=== PATIENT | female | born 1990 | race Caucasian/White ===

== ENCOUNTER 2019-12-26 09:35 | Outpatient (CLI) | payer OTHER, SELFPAY ==
[2019-12-26 10:07] LABS: Hematocrit 34.2 % (37.0-47.0); Hemoglobin 11.5 g/dL (12.0-15.0); Mean Corpuscular HGB Conc 33.6 g/dl (32-36); Mean Corpuscular Hemoglobin 31.6 pg (26-34); Mean Platelet Volume 9.9 fl (7.4-10.4); Platelet Count Result 182 k/mm3 (150-375); Red Blood Count 3.64 M/mm3 (4.2-5.4); Red Cell Distribution Width 15.8 % (11.5-14.5); White Blood Count 8.6 K/mm3 (4.5-10.0)
[2019-12-27 09:23] LABS: Rapid Plasma Reagin Non-Reactive (NonReactive)
== END 2019-12-26 09:36 | disposition home or self-care (01) ==
LOC: ANHLAB 09:40
PROVIDERS: PCP Obstetrics & Gynecology; Visit Provider Obstetrics & Gynecology
DX: Z34.93 Encounter for supervision of normal pregnancy, unspecified, third trimester (principal); Z3A.00 Weeks of gestation of pregnancy not specified
CPT/HCPCS: 36415; 85027; 86592; 86850; 86900; 86901

== ENCOUNTER 2019-12-27 07:34 | Inpatient (IN) | payer OTHER, SELFPAY ==
[2019-12-27] VITALS (52 sets, daily range): BP systolic 86–135; BP diastolic 44–81; PULSE 48–85; RESP 16–18; TEMP 36.2–37.1; O2SAT 93–100; BMI 37.0
--- NOTE | 2019-12-27 06:49 | WPDHPUPDATE1 ---
History and Physical Update Update Date/Time: 12/27/19 06:49 History and Physical has been reviewed, including an updated exam of the patient. There are NO changes in the patient's condition. Risks, benefits, and alternatives have been discussed and questions answered. Patient agrees to proceed with procedure.
--- NOTE | 2019-12-27 08:03 | LDADM ---
This patient, Raul Nguyen, was admitted to Labor/Delivery/Recovery 119 on 12/27/19 at 07:34. Plans for labor, pain management and were discussed with patient. Patient/family oriented to hospital policies and general routines including ID bracelet, bed and alarms, visiting hours, pain management, procedures, bathroom and other care routines, personal items, smoking policy, room service/diet and guest tray routines, security routines, and visiting hours. Patient/Family are encouraged to report perceived risks to care and to ask questions if they do not understand what they are told or what they should do. See OBIX for further documentation.
[2019-12-27] MEDS: LACTATED RINGERS 1,000 ML 125 ML IV CONT ×2 (08:30→08:39)
--- NOTE | 2019-12-27 08:39 | WPDANESEPPF ---
Anes - Initial Pre Proc Eval Procedure: Operation Date: 12/27/19 09:00 Proposed Procedures p Repeat Section - Kaushik Hammond MD Date/Time: 12/27/19 08:39 Surgeon: Kaushik Hammond MD Pre Op Diagnosis: section Patient Data Age: 29 Gender: F Height: 5 ft 4 in Weight: 98 kg Last Vital Signs Pulse 79 12/27/19 07:58 BP 133/76 12/27/19 07:58 Allergies Allergy/AdvReac Type Severity Reaction Status Date / Time No Known Allergies Allergy Unverified 09/17/18 17:09 Home Medications Medication Instructions Recorded Confirmed Type wqyolbos-oqx-Si-FA 1 tablet PO DAILY 12/27/19 12/27/19 History [] Patient hx anesthesia problems: none Family hx anesthesia problems: none PMFSH Surgical History Surgical History (Updated 12/27/19 @ 08:39 by Kaushik Barbosa MD) H/O sinus surgery History of section Family History Family History Grandparent Cancer Father Diabetes mellitus Sibling No problems noted. Father No problems noted. Other Bakari's disease Social History Social History Smoking status: Never smoker Second hand tobacco smoke exposure: No Substance use: never Gender identity (if verbalized by the patient): Female Sexual Orientation (if Verbalized by the Patient): Straight or Heterosexual Spiritual care concerns: No Anes - Eval Final PreProcedure Day of Procedure 12/27/19 08:39 Patient weight: obese Heart: regular rate and rhythm Lungs: clear to auscultation Airway: Mallampati scale class II Neurological: alert and oriented Last oral intake: >/= 8 hours ASA classification: II Emergent: no Anesthetic plan: proceed Anesthesia type and monitoring: regional spinal and standard monitoring Informed Consent: The patient's anesthetic plan and its attendant risks and benefits were discussed with the patient/family/POA. Questions were solicited and answers provided to the satisfaction of the patient/family/POA.
[2019-12-27] MEDS: ceFAZolin 2 GM/D5W 50 ML 2 GM/50 ML BAG IVPB (08:58)
--- NOTE | 2019-12-27 09:46 | PM.PROC ---
Procedure Note - Detailed Date of procedure: 12/27/19 Pre-op diagnosis: section Surgeon: Kaushik Hammond MD Postop diagnosis: Term section Procedure: Low-transverse section Findings: Female 9 lb 10 oz with Apgars of 8 and 8 at 1 and 5 minutes respectively Q BL: 500cc Complications: None Anesthesia: Spinal Description of procedure: The patient was prepped draped and placed in the supine position. Under excellent spinal anesthetic the abdomen was entered in a Pfannenstiel incision and progressive layers to the fascia. Fascia was incised in an upward outward fashion bilaterally. Underlying were sharply dissected. Parietal peritoneum elevated Hoa clamps and by sharp dissection carried superiorly and inferiorly to the dome of the bladder. Bladder blade was placed and a bladder flap was formed the bladder blade returned. A low-transverse incision made the head delivered in the LOLITA position. Anterior posterior shoulder delivered spontaneously. Cord clamped x2 and cut and passed off the table an extra o'clock cry. Placenta was delivered manually after getting cord blood. The uterus was inspected for any debris and noted be clear. Uterus was then closed with continuous running 0 Vicryl from lateral edge to lateral edge in locking fashion. Second imbricating locking 0 Vicryl was placed from lateral edge to lateral edge. Hemostasis was assured. The ovaries and tubes appeared within normal limits. The incision appeared intact. The uterus was returned to the abdomen. The uterus was inspected 1 last time and noted be hemostatic. Hematuria was placed over raw wound edge. The laps removed and accounted for. The fascia closed with continuous running 0 Vicryl from lateral edge to midline bilaterally. Irrigation subcutaneous layer. The skin closed with 4 Monocryl and glue. Quantitative blood loss was 500cc. All sponge, needle, instrument counts were correct. There were no immediate complications
[2019-12-27] MEDS: OXYTOCIN 30 UNITS/NS 500 ML 30 UNITS/500 ML BAG 125 UNITS IV CONT (10:22)
[2019-12-27] MEDS: LORATADINE 10 MG TABLET PO (11:07)
--- NOTE | 2019-12-27 12:05 | PC.NURSE ---
Patient transferred to post room #287 via stretcher. Support person present. Oriented to unit, room, information board, rooming in, admission packet and security measures. Patient verbalizes understanding.
--- NOTE | 2019-12-27 13:25 | PC.NURSE ---
Mother called out for assist with feeding . Consulted with patient, mother reports infant was able to latch without issue for first feeding. Mother reports first child had a tongue tie and difficulties and pain with feedings. She reports anxiety with due to the pain with last child. This infant does not apper to be tongue tight/tied. Reviewed tenderness with feeding is common within the first few days of . Nipple care reviewed. Reviewed feeding cues, frequencies, duration of feedings, feeding elimination flow sheet, and signs of adequate intake. Demonstrated stimulation techniques to wake for feeding. Assisted with infant to breast. Reviewed positioning/alignment in cross cradle, holding breast in U hold and guided asymmetrical latch on. Discussed the rational for each. Several attempts before was able to latch correctly. Mother has large nipples. nursed in bursts with eager steady draws and occasional swallowing noted followed with long pausing. Reviewed signs of a correct latch, effective nursing and suck swallow ratio. Infant was able to maintain latch without discomfort to mother. Advised to stimulate infant while feeding to keep awake and effectively feeding for increased intake and to assist with maintaining deep latch. Demonstrated how to adjust latch more deeply while feeding. Instructed mother to call out for RN assistance if she is unable to latch for feeding or she has discomfort with nursing. Instructed feeding should be initiated three hours from start of last feeding or if feeding cues are noted before. Mother voiced understanding of information shared.
[2019-12-27] MEDS: DEXTROSE 5%/0.45% SOD CHL 1,000 ML 125 ML IV CONT (15:27)
[2019-12-27] MEDS: diphenhydrAMINE HCl INJ 50 MG/ML VIAL 25 MG IV PUSH (15:30)
[2019-12-28] MEDS: HYDROcodone/acetaminophen (*CRX) 5-325 MG TABLET 1 TAB PO ×5 (04:58→19:24)
[2019-12-28] MEDS: IBUPROFEN 600 MG TABLET PO ×3 (04:59→19:23)
[2019-12-28 05:00] VITALS: BP 125/72; PULSE 85; RESP 17; TEMP 36.8
[2019-12-28 05:54] LABS: Basophils Percent Auto 0.2 % (0.2-1.2); Eosinophils Absolute Auto 0.1 K/mm3 (0-0.3); Eosinophils Percent Auto 0.7 % (0-4.4); Hematocrit 29.2 % (37.0-47.0); Hemoglobin 9.8 g/dL (12.0-15.0); Immature Granulocyte Absolute 0.06 K/mm3 (0.00-0.031); Immature Granulocyte Percent A 0.6 % (0-0.5); Lymphocytes Absolute Auto 1.06 K/mm3 (0.9-3.2); Lymphocytes Percent Auto 10.3 % (18.3-44.2); Mean Corpuscular HGB Conc 33.6 g/dl (32-36); Mean Corpuscular Hemoglobin 30.7 pg (26-34); Mean Corpuscular Volume 91.5 fl (80-100); Mean Platelet Volume 10.1 fl (7.4-10.4); Monocytes Absolute Auto 0.5 K/mm3 (0.1-0.6); Monocytes Percent Auto 4.6 % (2.6-8.5); Neutrophils Absolute Auto 8.6 K/mm3 (1.3-6.7); Neutrophils Percent Auto 83.6 % (45.5-73.1); Platelet Count Result 155 k/mm3 (150-375); Red Blood Count 3.19 M/mm3 (4.2-5.4); Red Cell Distribution Width 15.6 % (11.5-14.5); White Blood Count 10.3 K/mm3 (4.5-10.0)
[2019-12-28 08:00] VITALS: BP 106/54; PULSE 78; RESP 18; TEMP 36.8; O2SAT 100
--- NOTE | 2019-12-28 08:00 | PM.OBPNVD ---
OB - PN: Subj Subjective Date/time seen: 12/28/19 08:00 Interval history: Patient doing well this AM. she has ambulated out of bed. She is tolerating PO. She reports adequate pain control. Her bleeding is normal and she reports normal lochia. She denies fever, chills, N/V. She has not yet passed flatus. Pt reports a history of anxiety and bipolar depression. pt is feeling anxious since delivery. She was previously on Welbutrin. Patient comments: no complaints and pain well controlled; no flatus present OB - PN: Obj Data Labs CBC & Chem 7: 12/28/19 05:26 Labs: Laboratory Results - last 24 hr 12/28/19 05:26 WBC 10.3 H RBC 3.19 L Hgb 9.8 L Hct 29.2 L MCV 91.5 MCH 30.7 MCHC 33.6 RDW 15.6 H Plt Count 155 MPV 10.1 Immature Gran % (Auto) 0.6 H Neut % (Auto) 83.6 H Lymph % (Auto) 10.3 L Phillips % (Auto) 4.6 Eos % (Auto) 0.7 Baso % (Auto) 0.2 Lymph # (Auto) 1.06 Phillips # (Auto) 0.5 Eos # (Auto) 0.1 Baso # (Auto) 0.0 Abs Immat Gran (auto) 0.06 H Absolute Neuts (auto) 8.6 H Absolute Nucleated RBC 0.0 Nucleated RBC % 0.0 OB - PN A/P Plan day: 1 Plan: routine care Comments: patient doing well this AM santana d/c. advance diet as tolerated H/H .10/25, will start iron supplementation will restart welbutrin 150 mg xl daily, Xanax 0.25 mg PRN continue routine PP care Time Spent With Patient Time: Total time spent is greater than 50% in coordination of care (as documented) at patient's floor/unit and/or counseling patient: Time with patient: less than 15 minutes Review of Systems Constitutional: Constitutional: Reports no additional constitutional complaints Cardiovascular: Cardiovascular: Reports no additional cardiovascular complaints Respiratory: Respiratory: Reports no additional respiratory complaints Gastrointestinal: Gastrointestinal: Reports no additional gastrointestinal complaints Genitourinary: Genitourinary: Reports no additional female genitourinary complaints Exam Const: General: comfortable and no acute distress Resp: Effort & Inspection: normal respiratory effort Auscultation: clear to auscultation bilaterally Cardio: Rate: regular rate GI: GI Palp: Yes Soft to palpation and Yes Tenderness to palpation present (GI) (appropriately tender around incision ) Auscultation: normal bowel sounds Other: fundus firm and below umbilicus Incision C/D/I Urinary Catheter: Urinary Catheter: urine clear Psych: Appearance: grossly normal Mental Status: mental status grossly normal Affect: normal affect
[2019-12-28] MEDS: SIMETHICONE 80 MG TAB.CHEW PO ×3 (08:40→19:23)
[2019-12-28] MEDS: LANOLIN (LANSINOH) 7.5 GM CREAM 1 APPLIC TOPICAL (08:40)
[2019-12-28] MEDS: MULTIVIT/MIN/PREN/FOL AC/IRON TABLET 1 TAB PO (08:41)
[2019-12-28] MEDS: DOCUSATE SODIUM 100 MG CAPSULE PO ×2 (08:41→16:05)
[2019-12-28] MEDS: diphenhydrAMINE HCl CAP 25 MG CAPSULE (08:42)
[2019-12-28] MEDS: ALPRAZolam (*CRX) 0.25 MG TABLET PO (08:43)
--- NOTE | 2019-12-28 09:47 | WPDANLDNPN2 ---
Anes-Prog Note L&D-Neuraxial Date/Time: 12/28/19 09:47 Neuraxial medications: intrathecal PF morphine Opiod-related complaints: none Patient feedback: Patient satisfied with post-operative pain management.
--- NOTE | 2019-12-28 09:47 | WPDANLDPN2 ---
Anes-Prog Note L&D Date/Time: 12/28/19 09:47 Comfortable throughout: section Neuraxial method: spinal Epidural/Spinal procedure site: clean & non-tender Neuro status: Neuro function grossly intact. Cardiovascular status: normal Respiratory status: normal Airway patency: baseline Mental status: baseline Post-Op hydration status: normal Vital Signs: Last Vital Signs Temp 36.8 C 12/28/19 05:00 Pulse 85 12/28/19 05:00 Resp 17 12/28/19 05:00 BP 125/72 12/28/19 05:00 Pulse Ox 100 12/27/19 15:45 Pain score (VAS): 0/0 I/O: Intake & Output 12/27/19 12/28/19 12/28/19 23:59 07:59 15:59 Intake Total 4000 Output Total 5450 Balance -1450 Post-procedural complaints: none Patient feedback: Patient satisfied with anesthetic care.
[2019-12-28] MEDS: POLYSACCHARIDE IRON COMPLEX 150 MG CAPSULE PO (16:05)
[2019-12-28 19:24] VITALS: BP 121/77; PULSE 78; RESP 20; TEMP 36.7; O2SAT 99
--- NOTE | 2019-12-29 02:05 | PC.NURSE ---
Daylight Savings Time For Daylight Savings Time Ending in the Fall - Clocks are moved back. For Daylight Savings Time Beginning in the Spring - Clocks are moved ahead. For [facility], the time of change occurs at 0200 hrs. Time is taken from the maker up folding. This entry on the patient's chart recognizes the change in time reflected during documentation. Example: 2 entries for vital signs may be charted for 0200 hrs.
[2019-12-29] MEDS: HYDROcodone/acetaminophen (*CRX) 5-325 MG TABLET 1 TAB PO ×3 (03:48→12:51)
[2019-12-29] MEDS: SIMETHICONE 80 MG TAB.CHEW PO ×3 (03:48→12:50)
[2019-12-29] MEDS: IBUPROFEN 600 MG TABLET PO ×2 (03:49→12:50)
--- NOTE | 2019-12-29 07:25 | P.DS_ITS ---
DS: Admitting Diagnosis Admitting Diagnosis Admitting Diagnosis: section OB - DS: Summary OB Procedures : None OB Procedures Intrapartum: OB Procedures: : None Peripartum Data Infant Delivery Method: Section Procedures: Procedures Operation Date: 12/27/19 09:00 Actual Procedures Side Surgeon p Repeat Section Not Applicable Kaushik Hammond MD complications: none Status at Discharge Functional status at discharge: independent ambulation Overall status at discharge: patient is progressing back to baseline Time Spent with Patient Time attestation: Total time spent providing and/or coordinating discharge services: Time spent: Less than 30 minutes Exam Const: General: comfortable and no acute distress Resp: Effort & Inspection: normal respiratory effort Auscultation: clear to auscultation bilaterally Cardio: Rate: regular rate GI: Inspection: non-distended GI Palp: Yes Soft to palpation, No Firmness to palpation present (GI), Yes Tenderness to palpation present (GI) (mild tenderness over incision ) and No Guarding due to palpation present (GI) Auscultation: normal bowel sounds Psych: Appearance: grossly normal Mental Status: mental status grossly normal Discharge Plan Discharge Discharging Clinician: Leland Grijalva Patient Disposition: Home, Self-Care Activity: as tolerated and pelvic rest Diet: regular Patient Instructions: (DC) Stand Alone Forms: General Discharge Instructions Follow-up/Referrals: Kaushik Hammond MD [Physician] - Discharge Medications: New hydrocodone-acetaminophen 5-325 mg Tablet 1 tab PO Q3H PRN (Reason: Moderate Pain (4-6)) Qty: 28 RF: 0 alprazolam 0.25 mg Tablet 0.25 mg PO TID PRN (Reason: Anxiety) Qty: 30 RF: 0 polysaccharide iron complex 150 mg iron Capsule 150 mg PO BIDWM Qty: 30 RF: 0 ibuprofen 600 mg Tablet 600 mg PO Q6H PRN (Reason: Cramping) Qty: 30 RF: 0 bupropion HCl 150 mg Tablet Extended Release 24 Hr 150 mg PO QAM Qty: 30 RF: 3 docusate sodium 100 mg Capsule 100 mg PO BID Qty: 14 RF: 0 Pfv-V-Drqplf Cream 1 applic topical PRN PRN (Reason: Sore Nipples) Qty: 1 RF: 0 Continued 1 mg Tablet 1 tablet PO DAILY RF: 0 Date of admission: 12/27/19 07:34 Primary Care Provider: PHYSICIAN,CAD DESIGNER DRAFTER Admitting Provider: Kaushik Hammond Attending physician on admission: Kaushik Hammond Condition: Stable
[2019-12-29 08:00] VITALS: BP 116/77; BP 118/77; PULSE 86; RESP 18; RESP 20; TEMP 36.6; TEMP 37.1; O2SAT 100
[2019-12-29] MEDS: MULTIVIT/MIN/PREN/FOL AC/IRON TABLET 1 TAB PO (08:39)
[2019-12-29] MEDS: POLYSACCHARIDE IRON COMPLEX 150 MG CAPSULE PO (08:39)
[2019-12-29] MEDS: DOCUSATE SODIUM 100 MG CAPSULE PO (08:39)
[2019-12-29] MEDS: buPROPion HCL XL (24 HR) 150 MG TABCR PO (08:40)
--- NOTE | 2019-12-29 09:00 | PC.NURSE ---
Patient was given the opportunity to view the discharge video Mother & Baby Care, The First Two Weeks and to ask questions. Patient declined viewing the video and has been given the mother/baby guide for home reference.
--- NOTE | 2019-12-29 11:16 | PC.NURSE ---
Self care and infant discharge care given to pt. including follow up visit date and time. Pt.verbalized understanding. No questions or concerns voice. Very pleasant and cooperative. No distress noted.
[2019-12-31 09:51] VITALS: BP 132/80; PULSE 82; RESP 20; TEMP 36.9; O2SAT 100
--- NOTE | 2020-01-01 06:44 | PM.IMHP ---
H&P: HPI History of Present Illness Date/Time: 01/01/20 06:44 Chief complaint: section Narrative: Raul Nguyen is a 29 year old female Was admitted for repeat section had been completed. The had been uncomplicated with a large baby is expected Review of Systems Review of Systems: All systems reviewed & are unremarkable except as noted in HPI and below PMFSH Surgical History Surgical History H/O sinus surgery History of section Family History Family History Grandparent Cancer Father Diabetes mellitus Sibling No problems noted. Father No problems noted. Other Bakari's disease Social History Social History Smoking status: Never smoker Second hand tobacco smoke exposure: No Substance use: never Gender identity (if verbalized by the patient): Female Sexual Orientation (if Verbalized by the Patient): Straight or Heterosexual Spiritual care concerns: No Meds Home Medications and Allergies Home Medications Medication Instructions Recorded Confirmed Type viglggez-mdt-Eb-FA 1 tablet PO DAILY 12/27/19 12/27/19 History alprazolam 0.25 mg PO TID PRN #30 tablet 12/29/19 Rx bupropion HCl 150 mg PO QAM #30 tablet 12/29/19 Rx docusate sodium 100 mg PO BID #14 cap 12/29/19 Rx hydrocodone-acetaminophen 1 tab PO Q3H PRN #28 tablet 12/29/19 Rx ibuprofen 600 mg PO Q6H PRN #30 tablet 12/29/19 Rx lanolin [Ibu-T-Bivqlc] 1 applic TOPICAL PRN PRN #1 g 12/29/19 Rx polysaccharide iron complex 150 mg PO BIDWM #30 cap 12/29/19 Rx Allergies Allergy/AdvReac Type Severity Reaction Status Date / Time No Known Allergies Allergy Unverified 09/17/18 17:09 Vital Signs Vital Signs - 24 hr 12/31/19 09:51 Temperature 98.5 F Pulse Rate 82 Respiratory Rate 20 Blood Pressure 132/80 Pulse Oximetry 100 Exam Const: General: no acute distress Eyes: General: appearance normal, both eyes and all related structures Neck: Neck: supple and no JVD Thyroid: thyroid normal Resp: Effort & Inspection: normal respiratory effort Auscultation: clear to auscultation bilaterally Cardio: Rate: regular rate Rhythm: regular rhythm GI: Inspection: non-distended GI Palp: Yes Soft to palpation, No Tenderness to palpation present (GI) and No Guarding due to palpation present (GI) Auscultation: normal bowel sounds : General: Yes bladder normal to palpation External Female Exam: normal external appearance Speculum Exam - Vagina: normal vaginal discharge and No vaginal bleeding Speculum Exam - Cervix: nontender Bimanual exam- vagina & uterus: bladder normal to palpation and No Cervical tenderness present OB/external & speculum: No vaginal bleeding Skin: General skin exam: no rashes or lesions noted Extrem: General: normal to inspection and no edema Psych: Mental Status: mental status grossly normal Affect: normal affect Assessment and Plan Additional Plan impression: Term for section Plan: Low-transverse section
== END 2019-12-29 14:05 | disposition home or self-care (01) | DRG 788 ==
LOC: ANHOB2 12-29 07:26 → ANHLDR 01-01 08:14 → ANHOB2 01-01 08:14
PROVIDERS: Admitting Provider Obstetrics & Gynecology; Visit Provider Student in an Organized Health Care Education/Training Program
PROC: 10D00Z1 Extraction of Products of Conception, Low, Open Approach (ICD-10-PCS; CPT 59514; principal; 2019-12-27 09:00)
DX: O34.211 Maternal care for low transverse scar from previous cesarean delivery (principal); Z37.0 Single live birth; Z3A.39 39 weeks gestation of pregnancy; O99.214 Obesity complicating childbirth; E66.9 Obesity, unspecified; O99.344 Other mental disorders complicating childbirth; F41.8 Other specified anxiety disorders; F31.9 Bipolar disorder, unspecified
CPT/HCPCS: 36415; 85025; A9270; J0131; J0690; J1200; J2274; J2370; J2405; J2590; J7120

== ENCOUNTER 2020-01-03 14:08 | Outpatient (RCR) | payer OTHER, SELFPAY ==
--- NOTE | 2020-02-04 14:13 | PC.NURSE ---
Later entry Pt seen on 01-03-2020 [id number] OUT [id number] HISTORY: Pt. delivered at [facility] at 38 weeks. had no complications after delivery. Mother had no complications after delivery. Infant is now 7 days old. appears to be well cared for. has been seen by ICP as scheduled. last seen by ICP on 01/02/2020. Mother reports: Difficulties with latch and maintaining latch. Mother attempts infant for most feedings, is sleepy and will nurse on and off for a few minutes, she is fussy and on and off the breast. Mother is pumping 15 minutes after each feeding and will supplement 3oz oz of EBM/formula after. Mother pumps 4-6 oz per session. Mother wishes: Effectively breastfeed with less supplementation and pumping. Currently at 6-8 wets per day and 4-6 yellow seedy stools per day. weight: 9#10 Discharge weight: 8#15 Last Weight: 9#7 Pre feeding weight: 4284 Post feeding weight: 4298 OBSERVATION: Mother's milk is in leaking, no hawthorne noted to wither nipple/areola. Both nipples are low profile, and do not roll out. Infant does not appear to have any tongue, lip ties or recessed chin. Observed mother attempting to breast, using cross cradle and guided latch. Infant makes eager attempts and will latch after several attempts. Infant is able to latch, shallow to breast, with some discomfort to mother, she will quickly release latch and is eager to attempt again. Mother sates she will attempt this a few times before bottle feeding. Offered and explained the nipple shield, mother is willing to attempt shield use. Nipple shield provided to mother due to ineffective latch. Instructions given on application and cleaning of shield. Discussed nipple shield precautions and possible complications. Patient able to return demonstration on proper application of shield. Discussed the need for regular pumping until can empty breast and gain appropriately. Patient verbalizes understanding. With shield in place, was able to latch deeply. was not vigorously with nipple shield, suggested mother use breast compression to assist with milk flow. was nursing with bursts of long draws and freq swallowing, she would then stop and thrash around, once mother was able to keep milk flow infant would nurse. Reviewed is accustom to a heavy flow from bottle and may take several days for her to continuously nurse and illicit let down for flow. Suggested mother use pace feeding for bottle to assist with transition. Mother feels she will continue to put infant to breast using shield and supplement until infant is continuously nursing and satisfied when done. Discussed weaning from shield, suggested to allow to transition to breast effectively before weaning. Reviewed signs infant may be ready to decrease supplementation. PLAN: Mother will follow above feeding plan using techniques for deeper latch with shield, supplementing after. Weaning once is effectively nursing and satisfied at breast. Mother will call with further questions or concerns.
== END 2020-02-07 09:06 | disposition home or self-care (01) ==
LOC: ANHOBOP 14:08
PROVIDERS: Visit Provider Pediatrics
DX: Z39.1 Encounter for care and examination of lactating mother (principal)
CPT/HCPCS: 99199

== ENCOUNTER → 2021-03-08 10:34 | Outpatient (CLI) | payer OTHER, SELFPAY ==
[2021-03-08 14:42] LABS: Influenza Control Positive
[2021-03-08 20:23] LABS: SARS-CoV-2 RNA PCR Positive
== END ==
PROVIDERS: PCP Family Medicine; Visit Provider Family Medicine
DX: R05.9 Cough, unspecified (principal); R50.9 Fever, unspecified; U07.1 COVID-19
CPT/HCPCS: 87804; C9803; U0003; U0005

== ENCOUNTER → 2021-07-16 01:31 | Outpatient (CLI) | payer OTHER, SELFPAY ==
[2021-07-16 16:55] LABS: SARS-CoV-2 RNA PCR Negative
== END ==
PROVIDERS: PCP Family Medicine; Visit Provider Family Medicine
DX: R05.9 Cough, unspecified (principal); J02.9 Acute pharyngitis, unspecified; Z20.822 Contact with and (suspected) exposure to COVID-19
CPT/HCPCS: C9803; U0003; U0005

== ENCOUNTER 2022-12-29 11:38 | Outpatient (CLI) | payer OTHER, SELFPAY ==
--- NOTE | ~2022-12-29 | XR_ITS ---
XR chest 2V DATE: 12/29/2022 11:59 INDICATION: Cough TECHNIQUE: 2 views COMPARISON: None FINDINGS: Normal heart size. No hilar or mediastinal enlargement. No pulmonary infiltrate or consolid ation, pleural effusion or pulmonary vascular congestion or pneumothorax is detected. Included skelet al structures appear unremarkable. IMPRESSION: Negative Reviewed, dictated and finalized at location L. IMPRESSION: Negative
== END 2022-12-29 11:39 ==
LOC: MICIMG 11:41
PROVIDERS: PCP Physician Assistant; Visit Provider Physician Assistant
DX: R05.9 Cough, unspecified (principal); J45.909 Unspecified asthma, uncomplicated
CPT/HCPCS: 71046

== ENCOUNTER 2023-08-12 17:13 | Emergency (ER) | payer OTHER, SELFPAY ==
--- NOTE | ~2023-08-12 | XR_ITS ---
XR foot LT min 3V Ordering provider: Carrillo Bolton MD History: . twisted ankle in hole today,swelling lat ankle top of foot . Comparison: None. FINDINGS: BONES: Small chip of bone is projected over the distal calcaneus in the oblique view which may repres ent a fracture. No other definite fractures seen. Sclerotic lesion is seen in the mid-distal phalanx of the second toe. Follow-up advised. JOINT SPACES: Normal. No tarsal coalition. SOFT TISSUES: Normal. IMPRESSION: Chip of bone seen near to the tip of the calcaneus anteriorly which may represent a fracture. Follow- up advised. Sclerotic lesion in the middle phalanx of the second toe. Follow-up advised. Reviewed, dictated and finalized at location A. IMPRESSION: Chip of bone seen near to the tip of the calcaneus anteriorly which may represe nt a fracture. Follow-up advised. Sclerotic lesion in the middle phalanx of the second toe. Follow-up advised.
--- NOTE | ~2023-08-12 | XR_ITS ---
XR ankle LT min 3V Ordering provider: Carrillo Bolton MD History: . twisted ankle in hole today,swelling lat ankle top of foot . Comparison: None. FINDINGS: BONES: Small chip of bone is seen near to the tip of the lateral malleolus suggestive of a fracture. JOINT SPACES: The ankle mortise is normal. SOFT TISSUES: Mild soft tissue swelling over the lateral malleolus. IMPRESSION: Chip fracture in the lateral malleolus tip. Reviewed, dictated and finalized at location A.
[2023-08-12 17:24] VITALS: BP 117/83; PULSE 80; RESP 16; TEMP 36.8; O2SAT 100
--- NOTE | 2023-08-12 19:19 | ED.LOWEXIN ---
HPI - Extremity Injury (Lower) General Chief Complaint: Extremity Injury, Lower Stated Complaint: left ankle injury Time Seen by Provider: 08/12/23 17:47 Source: patient Mode of arrival: ambulatory Limitations: no limitations History of Present Illness HPI Narrative: This is a 33-year-old female that presents to the emergency department after a left ankle injury sustained just prior to arrival. Reports she accidentally stepped in a hole and twisted her ankle. Reports swelling and pain in the area. Denies decreased range of motion or numbness Related Data Home Medications Medication Instructions Recorded Confirmed dextroamphetamine-amphetamine 15 15 mg PO BID 01/04/21 12/29/22 mg tablet (Adderall) Allergies Allergy/AdvReac Type Severity Reaction Status Date / Time No Known Allergies Allergy Verified 08/12/23 17:27 Review of Systems Review of Systems: CONSTITUTIONAL: Denies fever MUSCULOSKELETAL: Reports joint pain, and myalgia. NEUROLOGIC: Denies numbness All systems reviewed & are unremarkable except as noted in HPI and below PMFSH Past Medical History Medical History ADHD Asthma Bipolar disorder Surgical History Surgical History H/O sinus surgery History of section Family History Family History Grandparent Cancer Father Diabetes mellitus Sibling No problems noted. Father No problems noted. Other Bakari's disease Social History Social History Smoking status: Never smoker Second hand tobacco smoke exposure: No Alcohol intake: never Substance use: never Living arrangements: with family Occupation/Education: occupation Gender identity (if verbalized by the patient): Female Sexual Orientation (if Verbalized by the Patient): Straight or Heterosexual Spiritual care concerns: No Exam Narrative: GENERAL: Well-appearing, well-nourished, and in no acute distress. HEAD: Normocephalic, atraumatic. EYES: EOMI. EXTREMITIES: Normal range of motion. Mild edema about the left lateral malleoli. Normal DP pulse. Normal sensation SKIN: Warm, dry, no rash. NEURO: No focal deficits. Alert and oriented x3. PSYCH: Normal mood and affect Course Course Emergency Course: patient updated on her workup and agrees with plan of care Vital Signs Vital signs: Vital Signs Temperature 98.3 F 08/12/23 17:24 Pulse Rate 80 08/12/23 17:24 Respiratory Rate 16 08/12/23 17:24 Blood Pressure 117/83 08/12/23 17:24 Pulse Oximetry 100 08/12/23 17:24 Oxygen Delivery Room Air 08/12/23 17:24 Temperature 98.3 F 08/12/23 17:24 Pulse Rate 80 08/12/23 17:24 Respiratory Rate 16 08/12/23 17:24 Blood Pressure 117/83 08/12/23 17:24 Pulse Oximetry 100 08/12/23 17:24 Oxygen Delivery Room Air 08/12/23 17:24 Procedures Orthopedic Splinting/Casting Injury #1: Splinting/Casting Date: 08/12/23 Splinting/Casting Time: 19:36 Side: left Lower Extremity Injury Location: ankle Lower Extremity Immobilizer: posterior splint Splint: customized in ED OCL: short leg Pre-Procedure Neuro Vascular Exam: normal Post-Procedure Neuro Vascular Exam: normal Other Orthopedic Equipment: crutches MDM - Extremity Injury (Lower) MDM Narrative Medical decision making narrative: patient presents to the emergency department for left ankle pain after an injury just prior to arrival. She is neurovascularly intact. Left ankle x-ray shows a chip fracture of the lateral malleolus. Patient placed in short leg posterior and given crutches. Will be given follow-up with Orthopedics. Sclerotic lesion of the 2nd toe incidentally found. Patient was made aware of this and in
[2023-08-12] MEDS: HYDROcodone/acetaminophen (*CRX) 5-325 MG TABLET 1 TAB PO (19:23)
[2023-08-12 19:42] VITALS: BP 122/74; PULSE 69; RESP 15; O2SAT 100
== END 2023-08-12 19:43 | disposition home or self-care (01) ==
PROVIDERS: Emergency Provider Physician Assistant; PCP Family Medicine
DX: S82.62XA Displaced fracture of lateral malleolus of left fibula, initial encounter for closed fracture (principal); J45.909 Unspecified asthma, uncomplicated; F90.9 Attention-deficit hyperactivity disorder, unspecified type; F31.9 Bipolar disorder, unspecified; M89.9 Disorder of bone, unspecified; Z79.899 Other long term (current) drug therapy; X50.9XXA Other and unspecified overexertion or strenuous movements or postures, initial encounter
CPT/HCPCS: 29515; 73610; 73630; 99284; A9270

== ENCOUNTER 2023-08-18 11:41 | Outpatient (CLI) | payer OTHER, SELFPAY ==
--- NOTE | ~2023-08-18 | CT_ITS ---
EXAMINATION: CT foot LT wo/w con DATE: 08/18/2023 12:06 INDICATION: Closed fracture of fibula. Sclerotic lesion of second middle phalanx. TECHNIQUE: Computed tomography (CT) of the left foot was performed without intravenous contrast. Auto mated exposure control and iterative reconstruction technique were employed. The dose-length product was 329.35 mGy-cm. COMPARISON: Left foot and ankle radiographs 08/12/2023 FINDINGS: Bone alignment is normal. There is a chip fracture of dorsal lateral aspect of head of talu s. There is a comminuted fracture of dorsal lateral aspect of anterior process of calcaneus. There is a comminuted fracture of medial aspect of cuboid. There is a benign bone island in second middle pha lanx. Joint spaces are normal. There is soft tissue swelling of the foot and ankle. IMPRESSION: 1. Fractures of anterior process of calcaneus, head of talus, and cuboid. 2. Benign bone island in second middle phalanx. Reviewed, dictated and finalized at location E.
== END 2023-08-18 11:42 ==
LOC: MICIMG 11:43
PROVIDERS: PCP Family Medicine; Visit Provider Orthopaedic Surgery
DX: S82.832D Other fracture of upper and lower end of left fibula, subsequent encounter for closed fracture with routine healing (principal); X58.XXXD Exposure to other specified factors, subsequent encounter
CPT/HCPCS: 73702; Q9967

== ENCOUNTER 2024-09-24 16:38 | Outpatient (CLI) | payer OTHER, SELFPAY ==
--- OUTSIDE RECORDS SUMMARY | 2024-09-24 16:41 | XMS_ITS | Clinical Summary ---
Author Organization [facility] ospital Address [address] [place] [address] Care Team Providers Care Blind Escort Name Role Phone Adolfo Barnes MD Primary Care Provider Saran Jeff MD Unavailable [phone] Allergies No known active allergies Medications No known medications Active Problems Problem Noted Date Diagnosed Date Rash 03/11/2022 Assessment & Plan (03/11/2022 3:09 PM NIGHT CLEANER): 32yoDebbi presents for evaluation due to facial rash, hand pain, and diffuse pruritus. The joint pain that she describes does not sound particularly inflammatory. Her facial rash is photosensitive, though does not clearly spare the nasolabial fold by exam. She has no synovitis or ttp. Our workup shows a negative AVISE (neg PATRIC and all other more specific autoantibodies) with normal CBC, CMP, CRP, and ESR. Her hand ultrasound look good without evidence to suggest inflammatory arthritis. Overall there is not evidence at this time to suggest any active rheumatologic diagnosis. Recommend continued follow up with derm. Polyarthralgia 02/17/2022 Overview (03/01/2022): US right hand/wrist (03/01/22):Grade 1 power doppler in the radial/scaphoid joint. Marked synovial thickening in the wrist. No significant joint effusions or erosive changes seen on US examination. Assessment & Plan (02/17/2022 11:49 AM NIGHT CLEANER): 32yoF presents for evaluation due to facial rash, hand pain, and diffuse pruritus. The joint pain that she describes does not sound particularly inflammatory. Her facial rash is photosensitive, though does not clearly spare the nasolabial fold by exam today. She has no synovitis or ttp. Overall have a lower suspicion for an active rheumatologic diagnosis. To evaluate will check labs and a hand ultrasound as below with plan for follow up in ~2 weeks to review results. Social History Tobacco Use Types Packs/Day Years Used Date Smoking Tobacco: Never Assessed Comments Unknown Sex and Gender Information Value Date Recorded Sex Assigned at Not on file Legal Sex Female 1:38 PM NIGHT CLEANER Gender Identity Not on file Sexual Orientation Not on file Obstetrics History Last Filed Vital Signs Vital Sign Reading Time Taken Comments Blood Pressure 120/82 03/11/2022 3:21 PM NIGHT CLEANER Pulse 106 03/11/2022 3:21 PM NIGHT CLEANER Temperature - - Respiratory Rate - - Oxygen Saturation 98% 03/11/2022 3:21 PM NIGHT CLEANER Inhaled Oxygen Concentration - - Weight 82.6 kg (182 lb) 03/11/2022 3:21 PM NIGHT CLEANER Height 162.6 cm (5' 4) 03/11/2022 3:21 PM NIGHT CLEANER Body Mass Index 31.24 03/11/2022 3:21 PM NIGHT CLEANER Plan of Treatment Health Maintenance Due Date Last Done Comments Cervical Cancer Screening 1988 Depression Screening 1988 Hepatitis C Screening 1988 Varicella Vaccines (1 of 2 - 13+ 2-dose series) 01/21/2001 Hepatitis B Screening 01/21/2006 Regular Well Visit/Exam 18-64 01/21/2006 HPV Vaccines (1 - 3-dose SCDM series) 01/21/2015 Covid-19 Vaccine (2 - season) 2023 07/18/2020 Influenza Vaccine (#1) 2024 0, 12/03/2019, 12/14/2018, Additional history exists DTaP/Tdap/Td Vaccine (4 - Td or Tdap) 10/30/2029 10/31/2019, 08/28/2019, 09/18/2017 Pneumococcal vaccine <65 Aged Out No longer eligible based on patient's age to complete this topic Insurance R [facility] Care Teams Blind Escort Relationship Specialty Start Date End Date Adolfo Barnes MD [address] [place] [address] PCP - General Family Medicine 01/13/22 Saran Jeff MD [address] [place] [address] Consulting Physician Rheumatology 01/13/22
--- OUTSIDE RECORDS SUMMARY | 2024-09-24 16:41 | XMS_ITS | Referral Summary ---
Author Organization [facility] ospital Address [address] [place] [address] Care Team Providers Care Surgical Clinical Reviewer Name Role Phone Adolfo Barnes MD Primary Care Provider Saran Jeff MD Unavailable [phone] Allergies No known active allergies Medications No known medications Active Problems Problem Noted Date Diagnosed Date Rash 03/11/2022 Assessment & Plan (03/11/2022 3:09 PM SUPERINTENDENT DIVISION): 32yoDebbi presents for evaluation due to facial [...] examination. Assessment & Plan (02/17/2022 11:49 AM SUPERINTENDENT DIVISION): 32yoF presents for evaluation due to facial [...] on file Legal Sex Female 1:38 PM SUPERINTENDENT DIVISION Gender Identity Not on file Sexual Orientation Not on file Last Filed Vital Signs Vital Sign Reading Time Taken Comments Blood Pressure 120/82 03/11/2022 3:21 PM SUPERINTENDENT DIVISION Pulse 106 03/11/2022 3:21 PM SUPERINTENDENT DIVISION Temperature - - Respiratory Rate - - Oxygen Saturation 98% 03/11/2022 3:21 PM SUPERINTENDENT DIVISION Inhaled Oxygen Concentration - - Weight 82.6 kg (182 lb) 03/11/2022 3:21 PM SUPERINTENDENT DIVISION Height 162.6 cm (5' 4) 03/11/2022 3:21 PM SUPERINTENDENT DIVISION Body Mass Index 31.24 03/11/2022 3:21 PM SUPERINTENDENT DIVISION Plan of Treatment Not on file Insurance [facility] Care Teams Surgical Clinical Reviewer Relationship Specialty Start Date End Date Adolfo Barnes MD [address] [place] [address] PCP - General Family Medicine 01/13/22 Saran Jeff MD [facility] [place] [address] Consulting Physician Rheumatology 01/13/22
--- OUTSIDE RECORDS SUMMARY | 2024-09-24 16:41 | XMS_ITS | Clinical Summary ---
Author Organization [facility] Address [address] [place] [address] Care Team Providers Care Installation Supervisor Name Role Phone Gulshan Kiser DO Primary Care Provider + Allergies No known active allergies Medications albuterol sulfate HFA 108 (90 Base) MCG/ACT inhaler INHALE 2 PUFFS Q 6 H PRN 07/02/2019 Active ALPRAZolam 0.25 MG tablet Take 0.25 mg by mouth 3 (three) times daily as needed. 12/29/2019 Active Azelaic Acid 15 % gel OLIVIA TO FACE D 12/23/2019 Active buPROPion XL 150 MG 24 hr tablet Take 150 mg by mouth every morning. 12/29/2019 Active buPROPion XL 300 MG 24 hr tablet Take 300 mg by mouth daily. 04/01/2019 Active busPIRone 10 MG tablet Take 10 mg by mouth 2 (two) times daily. 08/13/2019 Active lamoTRIgine 100 MG tablet Take 100 mg by mouth nightly at bedtime. 01/28/2019 Active lamoTRIgine 200 MG tablet Take 200 mg by mouth nightly at bedtime. 03/31/2019 Active Norgestimate-Et hinyl Estradiol (ORTHO TRI-CYCLEN, 28,) 0.18/0.215/0.25 MG-35 MCG tablet Take 1 tablet by mouth daily. 11/22/2011 Active POLY-IRON 150 150 MG capsule Take by mouth 2 (two) times daily. 12/29/2019 Active Prenat w/o O-ZO-Tlhwyfo-FA -DHA (PNV-DHA) 27-0.6-0.4-300 MG Cap Take 1 capsule by mouth daily. 11/05/2019 Active Active Problems No known active problems Immunizations Immunization Administration Dates Next Due Flucelvax 6 Months+ (Prefilled Syringe) 12/03/19 20,12/14/2018 Influenza (Generic) 12/28/2017 Tdap (Generic) 08/28/2019 Family History Medical History Relation Comments No Known Problems Father Cancer Maternal Grandfather Cancer Maternal Grandmother Cancer Maternal Uncle Depression Mother Thyroid Sister Relation Status Comments Father Alive Maternal Grandfather Maternal Grandmother Maternal Uncle Alive Mother Alive Sister Social History Tobacco Use Types Packs/Day Years Used Date Smoking Tobacco: Never Smokeless Tobacco: Never Alcohol Use Standard Drinks/Week Comments Never 0 (1 standard drink = 0.6 oz pur e alcohol) AUDIT-C Answer Date Recorded Q1: How often do you have a drink containing alc ohol? Never 01/13/2020 Average Number of Drinks Not on file 020 Frequency of Binge Drinking Not on file 12/28 PHQ-2 Answer Date Recorded PHQ-2 Score - If the patient scores above 3, please move on to questions 3-9 4 01/13/2020 Comments No Sex and Gender Information Value Date Recorded Sex Assigned at Not on file Legal Sex Female 9:08 PM CDT Gender Identity Not on file Sexual Orientation Not on file Occupation Industry Job Start Date Job End Date STAY AT HOME MOM Not on file Not on file Not on file Last Filed Vital Signs Vital Sign Reading Time Taken Comments Blood Pressure 102/68 01/13/2020 8:06 AM PLANT TAXONOMIST Pulse 73 01/13/2020 8:06 AM PLANT TAXONOMIST Temperature 36.6 C (97.8 F) 01/13/2020 8:06 AM PLANT TAXONOMIST Respiratory Rate 16 01/13/2020 8:06 AM PLANT TAXONOMIST Oxygen Saturation 98% 01/13/2020 8:06 AM PLANT TAXONOMIST Inhaled Oxygen Concentration - - Weight 91 kg (200 lb 9.6 oz) 01/13/2020 8:06 AM PLANT TAXONOMIST Height 162.6 cm (5' 4) 01/13/2020 8:06 AM PLANT TAXONOMIST Body Mass Index 34.43 01/13/2020 8:06 AM PLANT TAXONOMIST Plan of Treatment Health Maintenance Due Date Last Done Comments Cervical Cancer Screening Pa p Smear (Age 30 to 64) Every 3 Years 1988 Hepatitis C 01/21/2006 Hepatitis B Vaccines (1 of 3 - 19+ 3-dose series) 01/21/2007 HPV Vaccines (1 - 3-dose SCD M series) 01/21/2015 Cervical Cancer Screening Pa p with HPV Testing (Age 30 to 64) Every 5 Years 01/21/2018 Cervical Cancer Screening with HPV 01/21/2018 Annual Physical 01/12/2021 01/13/2020 COVID-19 Vaccine (1 - 2023-2 5 season) 2023 DTaP, Tdap and Td Vaccines ( 2 - Td or Tdap) 08/27/2029 08/28/2019 Meningococcal B Vaccine Aged Out No l onger eligible based on patient's age to complete this topic Meningococcal Vaccine Aged Out No jung aundrea eligible based on patient's age to complete this topic Pneumococcal Vaccine: Pediat rics (0 to 5 Years) and At-Risk Patients (6 to 49 Years) Aged Out No longer eligi ble based on patient's age to complete this topic RSV Immunizations Under 20 Months Aged Out No longer eligible based on patient's age to complete this topic Insurance Care Teams Installation Supervisor Relationship Specialty Start Date End Date Gulshan Kiser DO [address] [place] [id number] PCP - General FAMILY PRACTICE 01/13/20
--- OUTSIDE RECORDS SUMMARY | 2024-09-24 16:41 | XMS_ITS | Clinical Summary ---
Author Organization [facility] Care Team Providers Care Press Puller Name Role Phone Unavailable Primary Care Provider Unavailabl e Social History Tobacco Use Types Packs/Day Years Used Date Smoking Tobacco: Never Assessed Comments Unknown Sex and Gender Information Value Date Recorded Sex Assigned at Not on file Legal Sex Female 10:52 AM CDT Gender Identity Not on file Sexual Orientation Not on file Plan of Treatment Health Maintenance Due Date Last Done Comments Hepatitis C Virus (HCV) Screening 1990 Human Papillomavirus (HPV) Immunization (1 - 3-dose series) 01/21/2003 Hepatitis B Immunization (1 of 3 - 19+ 3-dose series) 01/21/2007 Pap Smear 01/21/2009 Cervical Cancer Screening (CCS) 01/21/2018 HPV/Cotest 01/21/2018 SARS-COV-2 Immunization ( season) 2023 07/18/2020 Influenza Immunization (#1) 2024 10/0 07/2019, 12/14/2018, 12/28/2017 Respiratory Syncytial Virus (RSV) Immunization (Adult) (1 - 1-dose 75+ series) 01/21/2063 DTaP/Tdap/Td Immunization Discontinued 2019, 08/28/2019, 09/18/2017 TdaP Immunization Completed 10/31/2019, 08/28/2019, 09/18/2017 Meningococcal Immunization (ACWY) Aged Out No longer eligible based on patient's age to complete this topic Pneumococcal Immunization Combined Aged Out No longer eligible based on patient's age to complete this topic Rotavirus Immunization Aged Out No lo nger eligible based on patient's age to complete this topic
[2024-09-24 17:22] LABS: Hematocrit 38.7 % (37.0-47.0); Hemoglobin 13.1 g/dL (12.0-15.0); Immature Granulocyte Percent A 0.2 % (0-0.5); Lymphocytes Absolute Auto 2.43 K/mm3 (0.9-3.2); Mean Corpuscular HGB Conc 33.9 g/dl (32-36); Mean Corpuscular Hemoglobin 31.0 pg (26-34); Mean Corpuscular Volume 91.5 fl (80-100); Nucleated Red Blood Cells Absolute Auto 0.000 K/mm3 (0.0-0.012); Nucleated Red Blood Cells Perc 0.0 % (0.0-0.2); Platelet Count Result 251 k/mm3 (150-375); Red Blood Count 4.23 M/mm3 (4.2-5.4); White Blood Count 8.3 K/mm3 (4.5-10.0)
== END 2024-09-24 16:39 | disposition home or self-care (01) ==
LOC: ANHLAB 16:40
PROVIDERS: PCP Family Medicine; Visit Provider Obstetrics & Gynecology
DX: R10.2 Pelvic and perineal pain (principal); Z01.818 Encounter for other preprocedural examination
CPT/HCPCS: 36415; 85025; 86850; 86900; 86901

== ENCOUNTER 2024-09-27 02:20 | Day surgery (SDC) | payer OTHER, SELFPAY ==
[2024-09-20 08:16] VITALS: BMI 34.4
--- NOTE | 2024-09-20 08:27 | PC.NURSE ---
Report to the Outpatient Waiting Room, entrance under the green pavilion located off [facility], at time _0900_ on date _[id number]_. Planned Procedure Time: _1100_.? Time changes happen often and if your time is changed the preop area will call you the afternoon before. - You and your visitor will be asked to self-screen and do not enter if you have any COVID symptoms. Please call surgeon if you need to reschedule. - A mask is optional within the hospital at this time. Patients may have clear liquids (water, carbonated beverages, clear teas, apple juice) until 3 hours prior to surgery with a maximum of 20 ounces. - No food from midnight until time of surgery and no smoking, or chewing tobacco (or any form of nicotine). No chewing gum, candy or mints. Take only the following medications with a SIP of water on the morning of surgery: ___Bupropion and if needed Albuterol DO NOT STOP ANY OF YOUR OTHER PRESCRIPTION MEDICATIONS PRIOR TO SURGERY EXCEPT THE FOLLOWING Hold all vitamins and supplements for 3 days per anesthesiologist. Medications to discontinue per physician Date to take last hcdo___[id number]____ Please no make-up, nail turkish, hairspray, perfume, deodorant, or body powder the day of surgery.? No jewelry (including any body piercings) or valuables the day of surgery, leave them at home.? Please take a shower or bath the night before, or the morning of, surgery with an antibacterial soap.? Wear comfortable, loose fitting clothing. - Jewelry must be removed prior to entering the operating room.? Rings and piercings that are not removed may be cut off. - The hospital will not accept responsibility for valuables.? - Please leave all valuables, including medications, at home the day of surgery. If you are going home after surgery, a licensed local owner operator truck driver must drive you home.? - NO public transportation without another adult if you receive anesthesia. - We recommend that an adult stay with you for 24 hours following discharge. - We also recommend that you do not drive, make important decision, drink alcoholic beverages, or take any drugs that were not prescribed by your health care provider for at least 24 hours after your discharge time. Follow any additional instructions given to you from your surgeon. Telephone instructions given to __Brette___and asked if any additional questions and then verbalized understanding. Patient advised to call surgeon office or pre surgery nurse liaison [phone] if any additional questions.
--- NOTE | 2024-09-25 07:01 | P.HP_ITS ---
H&P: HPI History of Present Illness Date/Time: 09/25/24 07:01 Chief Complaint: Pelvic pain excessive heavy bleeding with dyspareunia Narrative: This is 34-year-old female admitted for robotic hysterectomy bilateral salpingectomy secondary to severe pelvic pain dyspareunia and bleeding refractory to medical therapy. She had 3 previous sections 0 scar tissue was expected. Risks and benefits reviewed including min and not exclusive of , aspiration pneumonia, bleeding, transfusion, perforation injury to bowel, bladder, ureters, or other internal organs with need for laparotomy. She received the ACOG handout entitled hysterectomy as well as de Desiree handout. She had all questions answered. She asked to proceed. Review of Systems Review of Systems: CONSTITUTIONAL: Denies fever MUSCULOSKELETAL: Reports joint pain, and myalgia. NEUROLOGIC: Denies numbness All systems reviewed & are unremarkable except as noted in HPI and below PMFSH Past Medical History Medical History ADHD Bipolar disorder Asthma Surgical History Surgical History H/O sinus surgery History of section Family History Family History Grandparent Cancer Father Diabetes mellitus Unknown Depression Other Bakari's disease Social History Social History Social History: Smoking status: Never smoker Second hand tobacco smoke exposure: No Alcohol intake: current Substance use: never Substance use type: does not use Do You Feel Safe in your Home?: Yes Lack of Transportation: No Lack of Food: Never True Current Housing: I Have Housing Concerned About Future Housing: No Difficulty Paying Gas/Electric Bills: No Difficulty Paying for Meds: No Currently Unemployed: No Education: Don't Know Difficulty w/ Childcare or Family Care: No Living arrangements: with family Occupation/Education: occupation 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 Gender identity (if verbalized by the patient): Female Sexual Orientation (if Verbalized by the Patient): Straight or Heterosexual Spiritual care concerns: No Meds Home Medications and Allergies Home Medications ?Medication ?Instructions ?Recorded ?Confirmed ?Type albuterol sulfate 90 mcg/actuation 1 inh inhalation Q4H PRN shortness 12/29/22 09/20/24 Rx aerosol inhaler of breath or wheezing #8.5 grams hydrocortisone 2.5 % topical cream 1 applic topical BID PRN rash #28 10/26/23 09/20/24 Rx grams hydroxyzine HCl 25 mg tablet 25 mg PO TID PRN itching #90 tabs 10/26/23 09/20/24 Rx tizanidine 2 mg tablet 2 mg PO TID PRN muscle spasticity 12/29/23 09/20/24 Rx #30 tabs bupropion HCl 300 mg 24 hr tablet, See Rx Instructions .Route 06/18/24 09/20/24 Rx extended release .COMPLEX #90 tabs minocycline 50 mg capsule 50 mg PO DAILY 07/26/24 09/20/24 History dextroamphetamine-amphetamine 15 15 mg PO BID #60 tabs 08/29/24 09/20/24 Rx mg tablet (Adderall) omega 0-zam-pee-fish oil 1,200 mg 1 cap PO DAILY 09/20/24 09/20/24 History (144 mg-216 mg) capsule (Fish Oil) vits no.130-ferrous fum 1 tablet PO DAILY 09/20/24 09/20/24 History 27 mg iron-folic acid 800 mcg tablet ( Vitamin) Allergies Allergy/AdvReac Type Severity Reaction Status Date / Time No Known Allergies Allergy Verified 09/20/24 08:13 Exam Const: General: cooperative, healthy appearing and comfortable Nutritional Appearance: overweight Orientation/consciousness: oriented to person, oriented to place and oriented to time Resp: Effort & Inspection: normal respiratory effort Cardio: Rate: regular rate Rhythm: regular rhythm Heart sounds: S1 normal heart sound present and S2 normal heart sound present GI: Inspection: normal to inspection : External Female Exam: normal external appearance Speculum Exam - Vagina: normal appearance of the vagina Speculum Exam - Cervix: normal appearance of the cervix Bimanual exam- vagina & uterus: enlarged and fixed Bimanual Exam- Adnexa, other: normal adnexae Assessment and Plan Assessment and plan (1) Pelvic pain: Code(s): R10.2 - Pelvic and perineal pain Status: Acute (2) Dyspareunia: Status: Acute (3) Excessive bleeding: Code(s): R58 - Hemorrhage, not elsewhere classified Status: Acute Plan Proceed with robotic total vaginal hysterectomy salpingectomy
[2024-09-27] VITALS (10 sets, daily range): BP systolic 92–145; BP diastolic 65–98; PULSE 66–91; RESP 10–18; TEMP 36.2–36.8; O2SAT 96–100
--- OUTSIDE RECORDS SUMMARY | 2024-09-27 02:23 | XMS_ITS | Clinical Summary ---
Author Organization [facility] Care Team Providers Care Sponge Buffer Name Role Phone Unavailable Primary Care Provider [...]
--- OUTSIDE RECORDS SUMMARY | 2024-09-27 02:23 | XMS_ITS | Referral Summary ---
Author Organization [facility] ospital Address [address] [place] [address] Care Team Providers Care Financial Auditor Name Role Phone Adolfo Barnes MD Primary Care Provider Saran Jeff MD Unavailable [phone] Allergies No known active allergies Medications No known medications Active Problems Problem Noted Date Diagnosed Date Rash 03/11/2022 Assessment & Plan (03/11/2022 3:09 PM HAND CLOTH EXAMINER): 32yoDebbi presents for evaluation due to facial [...] examination. Assessment & Plan (02/17/2022 11:49 AM HAND CLOTH EXAMINER): 32yoF presents for evaluation due to facial [...] on file Legal Sex Female 1:38 PM HAND CLOTH EXAMINER Gender Identity Not on file Sexual Orientation Not on file Last Filed Vital Signs Vital Sign Reading Time Taken Comments Blood Pressure 120/82 03/11/2022 3:21 PM HAND CLOTH EXAMINER Pulse 106 03/11/2022 3:21 PM HAND CLOTH EXAMINER Temperature - - Respiratory Rate - - Oxygen Saturation 98% 03/11/2022 3:21 PM HAND CLOTH EXAMINER Inhaled Oxygen Concentration - - Weight 82.6 kg (182 lb) 03/11/2022 3:21 PM HAND CLOTH EXAMINER Height 162.6 cm (5' 4) 03/11/2022 3:21 PM HAND CLOTH EXAMINER Body Mass Index 31.24 03/11/2022 3:21 PM HAND CLOTH EXAMINER Plan of Treatment Not on file Insurance [facility] HMO/PPO Address: [facility] [address] [place] [address] Care Teams Financial Auditor Relationship Specialty Start Date End Date Adolfo Barnes MD [address] [place] [address] PCP - General Family Medicine 01/13/22 Saran Jeff MD [facility] [place] [address] Consulting Physician Rheumatology 01/13/22
--- OUTSIDE RECORDS SUMMARY | 2024-09-27 02:23 | XMS_ITS | Clinical Summary ---
Author Organization [facility] Address [address] [place] [address] Care Team Providers Care Electrical Tester Battery Name Role Phone Gulshan Kiser DO Primary [...] (two) times daily. 12/29/2019 Active Prenat w/o W-TP-Kkpabun-FA -DHA (PNV-DHA) 27-0.6-0.4-300 MG Cap Take 1 [...] Comments Blood Pressure 102/68 01/13/2020 8:06 AM SPRAY TECHNICIAN Pulse 73 01/13/2020 8:06 AM SPRAY TECHNICIAN Temperature 36.6 C (97.8 F) 01/13/2020 8:06 AM SPRAY TECHNICIAN Respiratory Rate 16 01/13/2020 8:06 AM SPRAY TECHNICIAN Oxygen Saturation 98% 01/13/2020 8:06 AM SPRAY TECHNICIAN Inhaled Oxygen Concentration - - Weight 91 kg (200 lb 9.6 oz) 01/13/2020 8:06 AM SPRAY TECHNICIAN Height 162.6 cm (5' 4) 01/13/2020 8:06 AM SPRAY TECHNICIAN Body Mass Index 34.43 01/13/2020 8:06 AM SPRAY TECHNICIAN Plan of Treatment Health Maintenance Due Date [...] to complete this topic Insurance Care Teams Electrical Tester Battery Relationship Specialty Start Date End Date Gulshan Kiser DO [address] [place] [id number] PCP - General FAMILY PRACTICE 01/13/20
--- OUTSIDE RECORDS SUMMARY | 2024-09-27 02:23 | XMS_ITS | Clinical Summary ---
Author Organization [facility] Address [address] [place] [address] Care Team Providers Care Director Of Infection Prevention Name Role Phone Adolfo Barnes MD Primary Care Provider Saran Jeff MD Unavailable [phone] Allergies No known active allergies Medications No known medications Active Problems Problem Noted Date Diagnosed Date Rash 03/11/2022 Assessment & Plan (03/11/2022 3:09 PM WINDING INSPECTOR AND TESTER): 32yoDebbi presents for evaluation due to facial [...] examination. Assessment & Plan (02/17/2022 11:49 AM WINDING INSPECTOR AND TESTER): 32yoF presents for evaluation due to facial [...] on file Legal Sex Female 1:38 PM WINDING INSPECTOR AND TESTER Gender Identity Not on file Sexual Orientation Not on file Obstetrics History Last Filed Vital Signs Vital Sign Reading Time Taken Comments Blood Pressure 120/82 03/11/2022 3:21 PM WINDING INSPECTOR AND TESTER Pulse 106 03/11/2022 3:21 PM WINDING INSPECTOR AND TESTER Temperature - - Respiratory Rate - - Oxygen Saturation 98% 03/11/2022 3:21 PM WINDING INSPECTOR AND TESTER Inhaled Oxygen Concentration - - Weight 82.6 kg (182 lb) 03/11/2022 3:21 PM WINDING INSPECTOR AND TESTER Height 162.6 cm (5' 4) 03/11/2022 3:21 PM WINDING INSPECTOR AND TESTER Body Mass Index 31.24 03/11/2022 3:21 PM WINDING INSPECTOR AND TESTER Plan of Treatment Health Maintenance Due Date [...] age to complete this topic Insurance R [facility] [place] [address] Care Teams Director Of Infection Prevention Relationship Specialty Start Date End Date Adolfo Barnes MD [address] [place] [address] PCP - General Family Medicine 01/13/22 Saran Jeff MD [address] [place] [address] Consulting Physician Rheumatology 01/13/22
--- NOTE | 2024-09-27 06:32 | WPDHPUPDATE1 ---
History and Physical Update Update Date/Time: 09/27/24 06:32 History and Physical has been reviewed, including an updated exam of the patient. There are NO changes in the patient's condition. Risks, benefits, and alternatives have been discussed and questions answered. Patient agrees to proceed with procedure.
[2024-09-27] MEDS: ACETAMINOPHEN 500 MG TABLET 1000 MG PO ×3 (10:30→20:54)
[2024-09-27] MEDS: KETOROLAC 15 MG/ML VIAL (*BKC) IV PUSH (10:30)
[2024-09-27] MEDS: LACTATED RINGERS 1,000 ML 30 ML IV CONT ×2 (10:30→13:14)
--- NOTE | 2024-09-27 11:00 | P.PNAN_ITS ---
Anes - Initial Pre Proc Eval Procedure: Operation Date: 09/27/24 11:00 Proposed Procedures p Robotic Assisted Total Vaginal Hysterectomy with Bilateral Salpingectomy - Kaushik Alegre MD Date/Time: 09/27/24 11:00 Surgeon: Kaushik Alegre MD Pre Op Diagnosis: Hev Bleed, pelv pain, dysmenorrhea Patient Data Age: 34 Gender: F Height: 1.63 m Weight: 92.9 kg Last Vital Signs Temp 36.8 C 09/27/24 10:30 Pulse 90 09/27/24 10:30 Resp 16 09/27/24 10:30 BP 145/70 H 09/27/24 10:30 Pulse Ox 99 09/27/24 10:30 O2 Del Method Room Air 09/27/24 10:30 Allergies Allergy/AdvReac Type Severity Reaction Status Date / Time No Known Allergies Allergy Verified 09/27/24 11:00 Home Medications ?Medication ?Instructions ?Recorded ?Confirmed ?Type albuterol sulfate 90 mcg/actuation 1 inh inhalation Q4H PRN shortness 12/29/22 09/20/24 Rx aerosol inhaler of breath or wheezing #8.5 grams hydrocortisone 2.5 % topical cream 1 applic topical BID PRN rash #28 10/26/23 09/20/24 Rx grams hydroxyzine HCl 25 mg tablet 25 mg PO TID PRN itching #90 tabs 10/26/23 09/20/24 Rx tizanidine 2 mg tablet 2 mg PO TID PRN muscle spasticity 12/29/23 09/20/24 Rx #30 tabs bupropion HCl 300 mg 24 hr tablet, See Rx Instructions .Route 06/18/24 09/20/24 Rx extended release .COMPLEX #90 tabs minocycline 50 mg capsule 50 mg PO DAILY 07/26/24 09/20/24 History dextroamphetamine-amphetamine 15 15 mg PO BID #60 tabs 08/29/24 09/20/24 Rx mg tablet (Adderall) omega 6-cxx-gvd-fish oil 1,200 mg 1 cap PO DAILY 09/20/24 09/20/24 History (144 mg-216 mg) capsule (Fish Oil) vits no.130-ferrous fum 1 tablet PO DAILY 09/20/24 09/20/24 History 27 mg iron-folic acid 800 mcg tablet ( Vitamin) hydrocodone 5 mg-acetaminophen 325 1 tablet PO Q4H PRN pain #20 tabs 09/27/24 Rx mg tablet Patient hx anesthesia problems: none Family hx anesthesia problems: none Results Review: All pre-operative results and documents have been reviewed as part of the pre- operative evaluation. [facility] Past Medical History Medical History ADHD Bipolar disorder Asthma Surgical History Surgical History H/O sinus surgery History of section Family History Family History Grandparent Cancer Father Diabetes mellitus Unknown Depression Other Bakari's disease Social History Social History Social History: Smoking status: Never smoker Second hand tobacco smoke exposure: No Alcohol intake: current Substance use: never Substance use type: does not use Do You Feel Safe in your Home?: Yes Lack of Transportation: No Lack of Food: Never True Current Housing: I Have Housing Concerned About Future Housing: No Difficulty Paying Gas/Electric Bills: No Difficulty Paying for Meds: No Currently Unemployed: No Education: Don't Know Difficulty w/ Childcare or Family Care: No Living arrangements: with family Occupation/Education: occupation 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 Gender identity (if verbalized by the patient): Female Sexual Orientation (if Verbalized by the Patient): Straight or Heterosexual Spiritual care concerns: No Anes - Eval Final PreProcedure Day of Procedure 09/27/24 11:00 Patient weight: obese Heart: regular rate and rhythm Lungs: clear to auscultation Airway: Mallampati scale class II Neurological: alert and oriented Last oral intake: >/= 8 hours ASA classification: III Emergent: no Anesthetic plan: proceed Anesthesia type and monitoring: general ETT and standard monitoring Results Review: All pre-operative results and documents have been reviewed as part of the pre- operative evaluation. Informed Consent: The patient's anesthetic plan and its attendant risks and benefits were discussed with the patient/family/POA. Questions were solicited and answers provided to the satisfaction of the patient/family/POA.
[2024-09-27] MEDS: ceFAZolin 2 GM in SODIUM CHLORIDE 0.9% IV 50 ML 100 ML IVPB (11:58)
--- NOTE | 2024-09-27 12:44 | S_PTH ---
PATIENT: Raul Nguyen LOC: [facility] U#:[id number] AGE/SX: 34/F ROOM: RE09/27/[address]: Kaushik Alegre MD : 1990 BED: DIS: 09/28/2024 SPEC #: [id number] RECD: 09/30/24 08:08 STATUS: JAYRO REQ #: [id number] MAO: 09/27/24 12:[address]: Kaushik Schmid DEPT: [facility] Surgical RECD BY: Olinda Bach ENTERED: 09/30/24 08:08 SP TYPE: Surgical OTHR DR: Adolfo Barnes MD Tissues: A - Uterus Procedures: Hematoxylin and Eosin Stain Gross and Microscopic Level 5
--- NOTE | 2024-09-27 13:00 | W.PM.PROC2 ---
Procedure Note - Detailed Date of Procedure 09/27/24 Pre-op Diagnosis Hev Bleed, pelv pain, dysmenorrhea Post-op Diagnosis Same Procedure Performed Robotic total vaginal hysterectomy and bilateral salpingectomy lysis of adhesions Surgeon Kaushik Alegre MD Anesthesia General Indications 34-year-old multiparous patient with previous C-sections and severe pelvic pain and bleeding refractory to medical therapy Findings Enlarged uterus. Pelvic adhesions from the bladder to the anterior portion of the uterus. Pelvic adhesions from the omentum to the anterior abdominal wall Description of Procedure The patient was prepped and draped in the normal sterile fashion placed in the dorsal lithotomy position. Under excellent general endotracheal anesthesia weighted speculum placed in posterior fornix vagina. Anterior lip of the uterus grasped with a single-tooth tenaculum uterus sounded to 10cm. Serial dilatation fragmented dilators performed followed by passage of the 8. KAIDEN and the 3. Cold cup. Next a 16 Polish catheter was placed in the bladder and a weighted speculum the single-tooth removed. The weighted speculum was removed the gloves were changed. A supraumbilical incision made the Veress needle passed in the. Abdomen filled with CO2 gas [id number]. The 8mm trocar advanced in the abdomen. Downside visualized no injury seen. Patient placed in Trendelenburg and right left lateral quadrant incisions made. 8mm trocars advanced under direct visualization assuring injury. The right upper quadrant incision made the 8mm trocar advanced under direct visualization assuring injury. The robot was docked. Attention was turned to the curriculum counselor of large clot both anterior omental adhesions were seen. Using sharp dissection with monopolar cautery these were serially dissected away to help with visualization 2cm enlarged uterus. The bladder was noted be adherent anterior to the uterus the left round ligament was grasped, burned, cut. Anterior bladder flap was formed by sharply dissecting layer by layer 2 released these adhesions until the bladder could be pushed caudally away from the cervix uterus the opposite round ligament was clamped, burned. Next the left fallopian tube was sharply dissected away from its ovarian connection and left attached to the uterine origin. In similar fashion the right fallopian tube was left attached to the uterine origin and sharply dissected away from the ovarian complex. Next the left utero-ovarian ligament was skeletonized to conserve the left ovary. This was clamped, burned, cut brought to level of previously cut round ligament. In similar fashion and conserving the right ovary, the utero-ovarian ligament was clamped, burned, cut brought to level of previously cut round ligament. Next the cardinal broad ligaments were serially skeletonized clamping burning cutting and hugging the cervix uterus until the large tortuous uterine vessels could be seen on the left these were individually clamped, burned, cut. In similar fashion the cardinal broad ligaments on the right were serially skeletonized clamping burning cutting and hugging the cervix uterus until the uterine vessels could be visualized on the right these were individually clamped, burned, cut. Excellent blanching the uterus was noted a colpotomy incision made. Cervix uterus and tubes removed through the vagina. The vagina then closed with continuous running 0V lock from lateral edge to lateral edge and back to the midline. Irrigation undertaken until clear and hemostasis was assured Ephraim term was placed over the raw surface area and blood loss estimated at25cc the robot was undocked. The gas removed from the abdomen. trocsra removed. patient wemt to recovery in satisfactoty condition. Estimated Blood Loss 25 Drains No Packing No Pathology Yes Complications No immediate complications Condition Stable Disposition PACU
--- NOTE | 2024-09-27 13:09 | P.DS_ITS ---
DS: Admitting Diagnosis Discharge Date 09/28/2024 Admitting Diagnosis Pelvic pain excessive bleeding DS: Discharge Diagnosis Discharge Diagnosis (1) Excessive bleeding: Code(s): R58 - Hemorrhage, not elsewhere classified Status: Acute (2) Dyspareunia: Status: Acute (3) Pelvic pain: Code(s): R10.2 - Pelvic and perineal pain Status: Acute DS: Summary Hospital Course Reason for hospitalization: Patient was admitted salpingectomy on. 09/27/2024 Hospital Course: The patient's hospital course was she remained afebrile. She was up, voiding without difficulty, eating a regular diet, ambulating, and generally without complaints Time Spent with Patient Time attestation: Total time spent providing and/or coordinating discharge services: Exam Const: General: cooperative, healthy appearing and comfortable Orientation/consciousness: oriented to person, oriented to place and oriented to time Resp: Effort & Inspection: normal respiratory effort Cardio: Rate: regular rate Rhythm: regular rhythm Heart sounds: S1 normal heart sound present and S2 normal heart sound present GI: Inspection: normal to inspection and incision (Wounds are clean dry and intact) DS: Data Data Completed and Pending Pending studies at discharge: Pending at discharge 09/27/24 12:44 Surgical [PTH] Routine Discharge Plan Discharge Patient Disposition: Home Patient Language: Trinidadian Stand Alone Forms: General Discharge Instructions Follow-up/Referrals: Kaushik Schmid MD [Physician] - Discharge Medications: New hydrocodone-acetaminophen 5-325 mg tablet 1 tablet PO Q4H PRN (Reason: pain) Qty: 20 0RF No Action hydrocortisone 2.5 % cream 1 applic topical BID PRN (Reason: rash) Qty: 28 0RF hydroxyzine HCl 25 mg tablet 25 mg PO TID PRN (Reason: itching) Qty: 90 0RF minocycline 50 mg capsule 50 mg PO DAILY Patient Comments: Per derm albuterol sulfate 90 mcg/actuation HFA aerosol inhaler 1 inh inhalation Q4H PRN (Reason: shortness of breath or wheezing) Qty: 8.5 2RF tizanidine 2 mg tablet 2 mg PO TID PRN (Reason: muscle spasticity) Qty: 30 0RF omega 7-cnf-qrf-fish oil [Fish Oil] 1,200 (144-216) mg capsule 1 cap PO DAILY Vitamin 27 mg iron- 800 mcg tablet 1 tablet PO DAILY bupropion HCl 300 mg tablet extended release 24 hr See Rx Instructions .ROUTE .COMPLEX Qty: 90 1RF Dose Instruction: TAKE 1 TABLET BY MOUTH EVERY MORNING Rx Instructions: TAKE 1 TABLET BY MOUTH EVERY MORNING dextroamphetamine-amphetamine [Adderall] 15 mg tablet 15 mg PO BID Qty: 60 0RF Rx Instructions: administer doses at least 4-6 hours apart
[2024-09-27] MEDS: fentaNYL CITRATE INJ (*CRX) 100 MCG/2 ML VIAL 25 MCG IV PUSH ×4 (13:47→14:10)
--- NOTE | 2024-09-27 14:42 | PC.NURSE ---
PT transported to room #289 via stretcher with spouse at bedside.
[2024-09-27] MEDS: DEXTROSE 5%/LACTATED RINGERS 1,000 ML 125 ML IV CONT (15:00)
[2024-09-27] MEDS: KETOROLAC 30 MG/ML VIAL (*BKC) IV PUSH ×2 (15:00→20:55)
[2024-09-27] MEDS: oxyCODONE HCL (*CRX) 5 MG TAB IR 10 MG PO (18:15)
[2024-09-27] MEDS: DOCUSATE SODIUM 100 MG CAPSULE PO (18:15)
[2024-09-27] MEDS: SIMETHICONE 80 MG TAB.CHEW PO (18:15)
[2024-09-27] MEDS: ONDANSETRON INJ 4 MG/2 ML VIAL IV PUSH (21:55)
[2024-09-28 04:00] VITALS: BP 98/62; PULSE 79; RESP 18; TEMP 36.6; O2SAT 100
[2024-09-28] MEDS: ACETAMINOPHEN 500 MG TABLET 1000 MG PO ×2 (04:00→09:47)
[2024-09-28] MEDS: KETOROLAC 30 MG/ML VIAL (*BKC) IV PUSH (04:00)
[2024-09-28 05:12] LABS: Hematocrit 37.1 % (37.0-47.0); Hemoglobin 12.5 g/dL (12.0-15.0); Immature Granulocyte Percent A 0.6 % (0-0.5); Lymphocytes Absolute Auto 1.39 K/mm3 (0.9-3.2); Mean Corpuscular HGB Conc 33.7 g/dl (32-36); Mean Corpuscular Hemoglobin 30.7 pg (26-34); Mean Corpuscular Volume 91.2 fl (80-100); Nucleated Red Blood Cells Absolute Auto 0.000 K/mm3 (0.0-0.012); Nucleated Red Blood Cells Perc 0.0 % (0.0-0.2); Platelet Count Result 285 k/mm3 (150-375); Red Blood Count 4.07 M/mm3 (4.2-5.4); White Blood Count 16.9 K/mm3 (4.5-10.0)
[2024-09-28 07:35] VITALS: BP 97/64; PULSE 67; RESP 16; TEMP 37; O2SAT 99
[2024-09-28] MEDS: oxyCODONE HCL (*CRX) 5 MG TAB IR PO (07:42)
[2024-09-28] MEDS: SIMETHICONE 80 MG TAB.CHEW PO (07:42)
[2024-09-28] MEDS: ENOXAPARIN 40 MG/0.4 ML SYRINGE SUB-Q (09:46)
[2024-09-28] MEDS: DOCUSATE SODIUM 100 MG CAPSULE PO (09:46)
[2024-09-28] MEDS: IBUPROFEN 600 MG TABLET PO (09:47)
--- NOTE | 2024-09-28 10:35 | PM.GYNPNOP ---
HUMAN RESOURCES ADMIN - A/P Postoperative Procedures: Procedures Operation Date: 09/27/24 11:00 Actual Procedure Side Surgeon p Robotic Assisted Total Vaginal Hysterectomy with Bilateral Salpingectomy Bilateral Kaushik Alegre MD Postoperative day: 1 Postoperative status: doing well Postoperative plan: routine post-op care and discharge Time Spent With Patient Time: Total time spent is greater than 50% in coordination of care (as documented) at patient's floor/unit and/or counseling patient: Time with patient: less than 15 minutes HUMAN RESOURCES ADMIN- PN:Subj Post-Op Subjective Date/time seen: 09/28/24 10:35 Subjective: patient reports feeling better, pain is well controlled and patient is tolerating oral intake Exam Narrative: inc c/d/i abdomen soft, nt HUMAN RESOURCES ADMIN - PN: Obj Data Vital Signs Vital Signs: Vital Signs - 24 hr 09/27/24 13:14 09/27/24 13:30 09/27/24 13:45 Temperature 97.1 F L Pulse Rate 72 81 66 Respiratory Rate 12 14 12 Blood Pressure 100/65 115/70 112/98 H Pulse Oximetry 100 100 100 Oxygen Delivery Simple Face Mask Simple Face Mask Simple Face Mask Oxygen Flow Rate 8 8 8 09/27/24 14:00 09/27/24 14:15 09/27/24 14:30 Temperature Pulse Rate 71 71 77 Respiratory Rate 10 L 12 12 Blood Pressure 112/81 112/66 109/74 Pulse Oximetry 96 99 100 Oxygen Delivery Room Air Room Air Room Air Oxygen Flow Rate 09/27/24 14:45 09/27/24 20:00 09/27/24 20:17 Temperature 97.5 F L 97.9 F Pulse Rate 85 91 Respiratory Rate 15 18 Blood Pressure 92/69 L 108/65 Pulse Oximetry 100 97 Oxygen Delivery Room Air Oxygen Flow Rate 09/27/24 23:53 09/28/24 04:00 09/28/24 07:35 Temperature 98.2 F 97.9 F 98.6 F Pulse Rate 88 79 67 Respiratory Rate 18 18 16 Blood Pressure 106/67 98/62 L 97/64 L Pulse Oximetry 98 100 99 Oxygen Delivery Oxygen Flow Rate 09/28/24 07:35 Temperature Pulse Rate Respiratory Rate Blood Pressure Pulse Oximetry Oxygen Delivery Room Air Oxygen Flow Rate Intake/Output Intake/Output: Intake & Output 09/25/24 09/26/24 09/27/24 09/28/24 23:59 23:59 23:59 23:59 Intake Total 1600 800 Output Total 1750 300 Balance -150 500 Meds/Results Medications: Active Medications Generic Name Dose Route Start Last Admin Trade Name Julioq PRN Reason Stop Dose Admin Acetaminophen 1,000 mg 09/27/24 18:00 09/28/24 09:47 Acetaminophen 500 Mg Tablet PO 1,000 mg Q6HR CARMELO Administration Docusate Sodium 100 mg 09/27/24 17:00 09/28/24 09:46 Docusate Sodium 100 Mg Capsule PO 100 mg BID CARMELO Administration Enoxaparin Sodium 40 mg 09/28/24 09:00 09/28/24 09:46 Enoxaparin 40 Mg/0.4 Ml Syringe SUB-Q 40 mg DAILY CARMELO Administration Lactated Ringer's 1,000 mls @ 30 mls/hr 09/27/24 11:05 09/27/24 13:14 Lr - Lactated Ringers Iv IV CONT Infused .Q24H CARMELO Infusion Dextrose/Lactated Ringer's 1,000 mls @ 125 mls/hr 09/27/24 14:31 09/28/24 06:53 Dextrose 5%/Lactated Ringers IV CONT Not Given .Q8H CARMELO Ibuprofen 600 mg 09/28/24 12:00 09/28/24 09:47 Ibuprofen 600 Mg Tablet PO 600 mg Q6HR CARMELO Administration Naloxone HCl 0.1 mg 09/27/24 14:31 Naloxone Hcl 0.4 Mg/Ml Vial IV PUSH Q2M PRN Respiratory rate less than 10 Ondansetron HCl 4 mg 09/27/24 14:31 09/27/24 21:55 Ondansetron Inj 4 Mg/2 Ml Vial IV PUSH 4 mg Q6H PRN Administration Nausea And Vomiting Oxycodone HCl 5 mg 09/27/24 14:31 09/28/24 07:42 Oxycodone Hcl (*Crx) 5 Mg Tab Ir PO 5 mg Q4H PRN Administration Pain Rated 4-6 Oxycodone HCl 10 mg 09/27/24 14:31 09/27/24 18:15 Oxycodone Hcl (*Crx) 5 Mg Tab Ir PO 10 mg Q6H PRN Administration Pain Rated 7-10 Simethicone 80 mg 09/27/24 17:00 09/28/24 07:42 Simethicone 80 Mg Tab.Chew PO 80 mg TIDWM CARMELO Administration Labs 09/28/24 04:35 Labs: Laboratory Results - last 24 hr 09/28/24 04:35 WBC 16.9 H RBC 4.07 L Hgb 12.5 Hct 37.1 MCV 91.2 MCH 30.7 MCHC 33.7 RDW 12.5 Plt Count 285 MPV 9.0 Immature Gran % (Auto) 0.6 H Neut % (Auto) 86.9 H Lymph % (Auto) 8.2 L [place] % (Auto) 4.0 Eos % (Auto) 0.0 Baso % (Auto) 0.3 Lymph # (Auto) 1.39 [place] # (Auto) 0.7 H Eos # (Auto) 0.0 Baso # (Auto) 0.1 Abs Immat Gran (auto) 0.10 H Absolute Neuts (auto) 14.7 H Absolute Nucleated RBC 0.000 Nucleated RBC % 0.0
== END 2024-09-28 10:46 | disposition home or self-care (01) ==
LOC: ANHSURGERY 09:00 → ANHOB2 14:43
PROVIDERS: PCP Family Medicine; Visit Provider Obstetrics & Gynecology
PROC: (CPT 58552; principal; 2024-09-27 11:00)
DX: N88.0 Leukoplakia of cervix uteri (principal); N73.6 Female pelvic peritoneal adhesions (postinfective); J45.909 Unspecified asthma, uncomplicated; F90.9 Attention-deficit hyperactivity disorder, unspecified type; F31.9 Bipolar disorder, unspecified; E66.9 Obesity, unspecified; Z68.35 Body mass index [BMI] 35.0-35.9, adult; Z79.51 Long term (current) use of inhaled steroids; Z79.891 Long term (current) use of opiate analgesic; Z98.890 Other specified postprocedural states; Z80.9 Family history of malignant neoplasm, unspecified
CPT/HCPCS: 58552; S2900; 36415; 85025; 88307; 99199; J0690; A9270; J1100; J1171; J1650; J1885; J2003; J2250; J2405; J2704; J3010; J7030; J7120; J7121